=== PATIENT | male | born 1990 | race Caucasian/White ===

== ENCOUNTER 2018-05-20 10:07 | Emergency (ER) | payer SELFPAY ==
[~2018-05-20] VITALS: Wt 79.5 kg
[~2018-05-20 10:07] MED LIST: HYDR-3498 PO; IBUP-1542 PO; NAPR-985 PO; ONDA4TAB8 PO; RANI150T35 PO
[2018-05-20 10:13] VITALS: BP 158/95; PULSE 100; RESP 24
== END 2018-05-20 10:46 | disposition left against medical advice (07) ==
LOC: FTE 10:07
DX: Z53.21 Procedure and treatment not carried out due to patient leaving prior to being seen by health care provider (principal)

== ENCOUNTER 2018-08-05 01:21 | Emergency (ER) | payer OTHER ==
[~2018-08-05] VITALS: Ht 170.2 cm; Wt 69.3 kg
[2018-08-05 01:26] VITALS: Ht 170.2 cm; Wt 69.3 kg
[2018-08-05] MEDS ORDERED: MAGNESIUM SULFATE 2 GM, MULTIVITAMINS 10 ML, THIAMINE 100 MG, FOLIC ACID 1 MG in SOD CH... IV STA (02:24)
[2018-08-05] MEDS ORDERED: ONDANSETRON 4 MG INJ IV STA (02:24)
--- NOTE | 2018-08-05 03:32 | ERD ---
ER Documentation Chief Complaint Chief Complaint HEAVY DRINKING X'S 2 DAYS, LAST DRINK 30 MIN AGO HPI This is a very pleasant 27-year-old male who is a heavy drinker for the past 2 days. Family brought him into the help in clinic with several. Denies fevers chills nausea vomiting. Denies any other current complaints. ROS All systems reviewed and are negative except as per history of present illness. Medications Home Meds Active Scripts Naproxen* (Naprosyn*) 500 Mg Tablet, 500 MG PO BID PRN for PAIN AND/OR INFLAMMATION, #30 TAB Prov:CARLA ROTH PA-C 11/03/17 Ibuprofen* (Motrin*) 600 Mg Tab, 600 MG PO Q6, #30 TAB Prov:RADHA ERICKSON 04/19/15 Hydrocodone Bit-Acetaminophen* ([place]*) 5-325 Mg Tab, 1 TAB PO Q6 PRN for PAIN, #20 TAB Prov:RADHA ERICKSON 04/19/15 Ondansetron Hcl* (Zofran*) 4 Mg Tablet, 4 MG PO Q8H PRN for NAUSEA AND/OR VOMITING, #10 TAB Prov:VIVIAN FLYNN 03/12/15 Ranitidine Hcl* (Zantac*) 150 Mg Tablet, 150 MG PO BID PRN for GASTROINTESTINAL UPSET, #30 TAB Prov:VIVIAN FLYNN 03/12/15 Allergies Allergies: Coded Allergies: No Known Allergy (Unverified , 11/03/17) PMhx/Soc History of Surgery: No Anesthesia Reaction: No Hx Neurological Disorder: No Hx Respiratory Disorders: No Hx Cardiac Disorders: No Hx Psychiatric Problems: No Hx Miscellaneous Medical Probl: No Hx Alcohol Use: Yes (Patient stated drinking alot tonight) Hx Substance Use: No Hx Tobacco Use: No Smoking Status: Never smoker Physical Exam Vitals Vital Signs Date Temp Pulse Resp B/P (MAP) Pulse Ox O2 O2 Flow FiO2 Time Delivery Rate 08/05/18 97.9 111 20 154/107 96 01:26 (123) Physical Exam Const: No acute distress Head: Atraumatic Eyes: Normal Conjunctiva ENT: Normal External Ears, Nose and Mouth. Neck: Full range of motion. No meningismus. Resp: Clear to auscultation bilaterally Cardio: Regular rate and rhythm, no murmurs Abd: Soft, non tender, non distended. Normal bowel sounds Skin: No petechiae or rashes Back: No midline or flank tenderness Ext: No cyanosis, or edema Neur: Awake and alert Psych: Normal Mood and Affect Result Diagram: 08/05/184 08/05/18 0234 Results 24 hrs Laboratory Tests Test 08/05/18 02:34 White Blood Count 7.6 10^3/ul Red Blood Count 5.02 10^6/ul Hemoglobin 16.0 g/dl Hematocrit 44.4 % Mean Corpuscular Volume 88.4 fl Mean Corpuscular Hemoglobin 31.9 pg Mean Corpuscular Hemoglobin Concent 36.0 g/dl Red Cell Distribution Width 12.1 % Platelet Count 130 10^3/UL Mean Platelet Volume 10.4 fl Immature Granulocytes % 0.300 % Neutrophils % 82.3 % Lymphocytes % 7.2 % Monocytes % 9.1 % Eosinophils % 0.3 % Basophils % 0.8 % Nucleated Red Blood Cells % 0.0 /100WBC Immature Granulocytes # 0.020 10^3/ul Neutrophils # 6.3 10^3/ul Lymphocytes # 0.6 10^3/ul Monocytes # 0.7 10^3/ul Eosinophils # 0.0 10^3/ul Basophils # 0.1 10^3/ul Nucleated Red Blood Cells # 0.0 10^3/ul Urine Color STRAW Urine Clarity CLEAR Urine pH 6.0 Urine Specific Patterson 1.004 Urine Ketones NEGATIVE mg/dL Urine Nitrite NEGATIVE mg/dL Urine Bilirubin NEGATIVE mg/dL Urine Urobilinogen NEGATIVE mg/dL Urine Leukocyte Esterase NEGATIVE Sven/ul Urine Microscopic RBC 1 /HPF Urine Microscopic WBC 0 /HPF Urine Hemoglobin 1+ mg/dL Urine Glucose NEGATIVE mg/dL Urine Total Protein 1+ mg/dl Sodium Level 143 mmol/L Potassium Level 4.0 mmol/L Chloride Level 97 mmol/L Carbon Dioxide Level 26 mmol/L Anion Gap 20 Blood Urea Nitrogen 6 mg/dl Creatinine 0.73 mg/dl Est Glomerular Filtrat Rate mL/min > 60 mL/min Glucose Level 137 mg/dl Calcium Level 9.3 mg/dl Total Bilirubin 0.9 mg/dl Direct Bilirubin 0.00 mg/dl Indirect Bilirubin 0.9 mg/dl Aspartate Amino Transf (AST/SGOT) 131 IU/L Alanine Aminotransferase (ALT/SGPT) 102 IU/L Alkaline Phosphatase 87 IU/L Total Protein 8.9 g/dl Albumin 5.0 g/dl Globulin 3.90 g/dl Albumin/Globulin Ratio 1.28 Salicylates Level < 1.0 mg/dl Urine Opiates Screen NEGATIVE Acetaminophen Level < 10.0 ug/ml Urine Barbiturates NEGATIVE Urine Amphetamines Screen NEGATIVE Urine Benzodiazepines Screen NEGATIVE Urine Cocaine Screen NEGATIVE Urine Cannabinoids NEGATIVE Ethyl Alcohol Level mg/dl Current Medications Medications Dose Sig/[place] Start Time Status Last (Trade) Ordered Route PRN Stop Time Admin Dose Reason Admin Magnesium 1,015.2 ml Q2H2M STAT 08/05/18 Sulfate 2 @ 500 mls/ IV 02:24 gm/ hr 08/05/18 04:25 Multivitamins 10 ml/Thiamine HCl 100 mg/Folic Acid 1 mg/Sodium Chloride Ondansetron 4 mg ONCE STAT 08/05/18 DC 08/05/18 HCl (Zofran IV 02:24 02:42 Inj) 08/05/18 02:26 Procedures/MDM Medical decision making:m this is a very pleasant patient comes in for alcohol intoxication. He is at this point clinically stable for outpatient management has been advised to stop drinking. Departure Diagnosis: Primary Impression: Alcoholic intoxication Complication of substance-induced condition: uncomplicated Qualified Codes: F10.920 - Alcohol use, unspecified with intoxication, uncomplicated Condition: Stable Patient Instructions: Alcohol Intoxication JACKIE ABBOTT Aug 05, 2018 03:32
[2018-08-05 04:38] VITALS: BP 126/87; PULSE 78; RESP 20
== END 2018-08-05 04:30 | disposition home or self-care (01) ==
LOC: E/R 01:21
DX: F10.920 Alcohol use, unspecified with intoxication, uncomplicated (principal)
CPT/HCPCS: 36415; 80053; 80307; 81001; 85025; 96365; 96375; J2405; J3411; J3475; J7030; Z7502; Z7610

== ENCOUNTER 2018-10-06 07:28 | Inpatient (IN) | payer OTHER ==
[~2018-10-06] VITALS: Ht 165.1 cm; Wt 68.0 kg
[~2018-10-06 07:28] MED LIST changes: +DOCU-144 PO; +FOLI-49 PO; +MULT-761 PO; +PANT40TA4 PO; +SUCR1TAB35 PO; +THIA100T56 PO
[2018-10-06 11:40] VITALS: Ht 165.1 cm; Wt 68.0 kg
[2018-10-08 16:00] VITALS: BP 118/88; PULSE 114; RESP 20
== END 2018-10-08 16:59 | disposition home or self-care (01) | DRG 381 ==
LOC: E/R 07:28 → ICU 08:01
PROVIDERS: ADMIT Family Medicine; ATTEND Family Medicine
PROC: 0DJD8ZZ Inspection of Lower Intestinal Tract, Via Natural or Artificial Opening Endoscopic (ICD-10-PCS; principal; 2018-10-07)
PROC: 0DB68ZX Excision of Stomach, Via Natural or Artificial Opening Endoscopic, Diagnostic (ICD-10-PCS; 2018-10-07)
DX: K22.11 Ulcer of esophagus with bleeding (principal); R65.10 Systemic inflammatory response syndrome (SIRS) of non-infectious origin without acute organ dysfunction; I85.00 Esophageal varices without bleeding; E83.42 Hypomagnesemia; K92.0 Hematemesis; K70.10 Alcoholic hepatitis without ascites; K92.1 Melena; F10.10 Alcohol abuse, uncomplicated; Y90.8 Blood alcohol level of 240 mg/100 ml or more; E87.6 Hypokalemia; K64.8 Other hemorrhoids; K29.70 Gastritis, unspecified, without bleeding
CPT/HCPCS: 36415; 76705; 80053; 80307; 82140; 83735; 84484; 85014; 85018; 85025; 85610; 85730; 86704; 86709; 86803; 86850; 86900; 86901; 86920; 87081; 87340; 88305; 88312; 93005; 96374; 96375; C9113; J2060; J2250; J2354; J2405; J2765; J3411; J3475; J3480; J7030; J7040